=== PATIENT | male | born 1975 | race Caucasian/White ===

== ENCOUNTER 2020-06-18 12:00 | Emergency (ER) | payer SELFPAY ==
--- NOTE | 2020-06-18 12:49 | ER Document Report ---
ED General - General Chief Complaint: Abdominal Pain Stated Complaint: COUGH/FREQUENT URINGATION/VOMITING/DIARRHEA/CHILLS Time Seen by Provider: 06/18/20 12:30 Mode of Arrival: Ambulatory Information source: Patient - HPI Notes: This patient is a 44-year-old gentleman who presents with several month history of abdominal pain with intermittent loose stools and food intolerance with vomiting. He denies fever or chills. He had this about 2 years ago. He underwent an extensive work-up at a number of outlying facilities. Ultimately he saw a client administrator from [place] who diagnosed him with a "E. coli infection". He does not know what strain. He was treated and improved. However started around 2019 his symptoms have returned. He states he is now to the point where he can only eat a can of soup a day. Sometimes he vomits even after drinking water. He has 2-3 loose stools a day. He denies any hematemesis melena or hematochezia. He denies any weight loss and says that his weights been stable between 215 to 220 pounds for some time. He has no night sweats. He has no family history of inflammatory bowel disease. He is here today because he is very frustrated with his situation and the persistence of his symptoms. - Related Data Allergies/Adverse Reactions: No Known Allergies Allergy (Unverified 06/18/20 12:14) Past Medical History - General Information source: Patient - Social History Smoking Status: Unknown if Ever Smoked Frequency of alcohol use: None Drug Abuse: None Family History: Reviewed & Not Pertinent Patient has suicidal ideation: No Patient has homicidal ideation: No - Medical History Medical History: Other Notes: Past medical history as recorded in electronic health record is reviewed. Review of Systems - Review of Systems Notes: Full 12 point review of systems is negative or noncontributory except as noted in the present illness. Physical Exam - Vital signs Vitals: Temp 98.8 F 06/18/20 12:14 - Notes Notes: General: This is a well-developed well-nourished male no acute distress. Vital signs and nursing chief complaint are reviewed. HEENT: Grossly normal to inspection. Neck: Supple nontender no adenopathy. Chest: Normal configuration lungs clear to auscultation. Heart: Regular rate and rhythm without murmur rub or gallop. Abdomen: Mildly distended and a little firm. He has hypoactive but present bowel sounds. He has very mild diffuse direct tenderness. No guarding. No masses or organomegaly to speak of. Is that his abdomen feels bloated and he often has to position himself in a semirecumbent position to get some relief from that sensation. Extremities: Without clubbing cyanosis or edema. Skin: Warm moist good turgor no rashes. Back: Normal curvatures no CVA tenderness. Neuro: Alert and oriented x3. No focal motor or sensory deficits. Course - Re-evaluation Re-evalutation: 06/18/20 16:05 Patient rested comfortably throughout his stay. His labs were all normal or nondiagnostic. His CT scan was completely normal. I think it would be reasonable to go ahead and have him collect stool specimens for stool culture and for O&P. Depending on the results of those studies he either will be treated or he will require further follow-up with gastroenterology if his symptoms persist. - Vital Signs Vital signs: Temp Pulse Resp BP Pulse Ox 98.8 F 93 26 H 117/100 H 97 06/18/20 12:34 06/18/20 12:34 06/18/20 15:01 06/18/20 15:01 06/18/20 15:01 - Laboratory Results Result Diagrams: 06/18/20 13:48 06/18/20 13:48 Laboratory Results Interpreted: 06/18/20 06/18/20 13:48 13:48 RBC 5.95 H Hgb 17.3 H Sodium 135.0 L ALT 60 H Critical Laboratory Results Reviewed: No Critical Results - Radiology Results Critical Radiology Results Reviewed: No Critical Results Discharge - Discharge Clinical Impression: Chronic diarrhea Abdominal pain Qualifiers: Abdominal location: generalized Qualified Code(s): R10.84 - Generalized abd ominal pain Condition: Good Disposition: HOME, SELF-CARE Instructions: Abdominal Pain ([facility]), Antispasmodics ([facility]) Additional Instructions: Please collect stool specimens at home according to the instructions you have been given and return them to the laboratory for stool culture to test for bacte yoly and stool for ova and parasites to check for parasitic disease. When these tests are completed we will call you with the results. Please contact your client administrator office and see if you can make an appointment for a reevaluation. You may wish to wait to do this until after you have the results of the stool tests. Consider using a diet supplement drinks such as Ensure or PediaSure so that you are getting enough protein and calories in your diet every day in an easily digestible format. Return to the emergency department if any concerning symptoms develop.
[2020-06-18] MEDS ORDERED: MORPHINE SULFATE 10 MG/ML INJ IV ONE (14:07)
[2020-06-18] MEDS ORDERED: ONDANSETRON HCL INJ/PF 4 MG/2 ML SDV IV ONE (14:07)
[2020-06-18 14:17] LABS: ABSOLUTE BASOPHILS # (AUTO) 0.1 10^3/uL (0.0-0.2); ABSOLUTE EOSINOPHILS # (AUTO) 0.1 10^3/uL (0.0-0.6); ABSOLUTE LYMPHOCYTES (AUTO) 1.8 10^3/uL (0.5-4.7); ABSOLUTE MONOCYTES (AUTO) 0.6 10^3/uL (0.1-1.4); ABSOLUTE NEUT (AUTO) 6.1 10^3/uL (1.7-8.2); BASOPHILS % (AUTO) 1.2 % (0-2); HEMATOCRIT 50.8 % (37.9-51.0); HEMOGLOBIN 17.3 g/dL (13.5-17.0); LYMPHOCYTES % (AUTO) 20.4 % (13-45); MEAN CORPUSCULAR HEMOGLOBIN 29.1 pg (27.0-33.4); MEAN CORPUSCULAR HGB CONC 34.1 g/dL (32.0-36.0); MEAN CORPUSCULAR VOLUME 85 fl (80-97); PLATELET COUNT 290 10^3/uL (150-450); RED BLOOD COUNT 5.95 10^6/uL (4.35-5.55); RED CELL DISTRIBUTION WIDTH 12.7 % (11.5-14.0); SEGMENTED NEUTROPHILS % (AUTO) 70.4 % (42-78); TOTAL CELLS COUNTED % (AUTO) 100 %; WHITE BLOOD COUNT 8.6 10^3/uL (4.0-10.5)
[2020-06-18 14:50] LABS: ALKALINE PHOSPHATASE 64 U/L (38-126); ANION GAP 8 (5-19); ASPARTATE AMINO TRANSFERASE 54 U/L (17-59); BILIRUBIN,DIRECT 0.1 mg/dL (0.0-0.4); BILIRUBIN,TOTAL 0.9 mg/dL (0.2-1.3); BLOOD UREA NITROGEN 16 mg/dL (7-20); CALCIUM 10.1 mg/dL (8.4-10.2); CARBON DIOXIDE 28 mmol/L (22-30); CHLORIDE 99 mmol/L (98-107); GLUCOSE 103 mg/dL (75-110); POTASSIUM 4.5 mmol/L (3.6-5.0); TOTAL PROTEIN 8.2 g/dL (6.3-8.2)
[2020-06-18 14:56] LABS: C-REACTIVE PROTEIN < 5.0 mg/L (<10.0)
[2020-06-18 15:02] LABS: ERYTHROCYTE SEDIMENTATION RATE 12 mm/hr (0-15)
--- NOTE | 2020-06-18 15:39 | RADIOLOGY REPORT (SQ) ---
EXAM DESCRIPTION: CT ABD/PELVIS WITH IV ORAL IMAGES COMPLETED DATE/TIME: 06/18/2020 3:24 pm REASON FOR STUDY: Abd pain, diarrhea, anorexia COMPARISON: None. TECHNIQUE: CT scan of the abdomen and pelvis performed using helical scanning technique with dynamic intravenous contrast injection. No oral contrast. Images reviewed with lung, soft tissue, and bone windows. Reconstructed coronal and sagittal MPR images reviewed. Delayed images for evaluation of the urinary system also acquired. All images stored on PACS. All CT scanners at this facility use dose modulation, iterative reconstruction, and/or weight based d osing when appropriate to reduce radiation dose to as low as reasonably achievable (ALARA). [facility]: Dose Right [facility]: CareDose [facility]: Dose Right [facility]: Teradose 4D [facility]: DriverSide CONTRAST TYPE AND DOSE: contrast/concentration: Isovue 350.00 mmol/ml; Total Contrast Delivered: 99. 0 ml; Total Saline Delivered: 69.0 ml RENAL FUNCTION: GFR > 60. RADIATION DOSE: CT Rad equipment meets quality standard of care and radiation dose reduction techniq ues were employed. CTDIvol: 14.6 - 18.3 mGy. DLP: 1858 mGy-cm.. LIMITATIONS: None. FINDINGS: LOWER CHEST: No significant findings. No nodules or infiltrates. LIVER: Normal size. Fatty change. No masses. No dilated ducts. SPLEEN: Normal size. No focal lesions. PANCREAS: No masses. No significant calcifications. No adjacent inflammation or peripancreatic fluid collections. Pancreatic duct not dilated. GALLBLADDER: No identified stones by CT criteria. No inflammatory changes to suggest cholecystitis. ADRENAL GLANDS: No significant masses or asymmetry. RIGHT KIDNEY AND URETER: No solid masses. No significant calcifications. No hydronephrosis or hyd roureter. LEFT KIDNEY AND URETER: No solid masses. No significant calcifications. No hydronephrosis or hydr oureter. AORTA AND VESSELS: No aneurysm. No dissection. Renal arteries, SMA, celiac without stenosis. RETROPERITONEUM: No retroperitoneal adenopathy, hemorrhage or masses. BOWEL AND PERITONEAL CAVITY: No masses or inflammatory changes. No free fluid or peritoneal masses. APPENDIX: Normal. PELVIS: No mass. No free fluid. Normal bladder. ABDOMINAL WALL: No masses. No hernias. BONES: No significant or acute findings. OTHER: No other significant finding. IMPRESSION: No acute findings. TECHNICAL DOCUMENTATION: JOB ID: [id number] Quality ID # [id number]: Final reports with documentation of one or more dose reduction techniques (e.g., Au tomated exposure control, adjustment of the mA and/or kV according to patient size, use of iterative reconstruction technique) 2010 [employer]- All Rights Reserved Reading location - IP/workstation name: [email or web address]
[2020-06-18 15:55] LABS: APPEARANCE,URINE CLEAR; BILIRUBIN,URINE NEGATIVE (NEGATIVE); COLOR,URINE YELLOW; GLUCOSE, URINE NEGATIVE (NEGATIVE); KETONES,URINE NEGATIVE (NEGATIVE); LEUKOCYTE ESTERASE,URINE NEGATIVE (NEGATIVE); NITRITE,URINE NEGATIVE (NEGATIVE); PROTEIN,URINE NEGATIVE (NEGATIVE); UROBILINOGEN,URINE NEGATIVE mg/dL (<2.0)
[2020-06-18 16:53] VITALS: BP 132/94
== END 2020-06-18 17:27 | disposition home or self-care (01) ==
LOC: ER 12:00
DX: K52.9 Noninfective gastroenteritis and colitis, unspecified (principal); R10.84 Generalized abdominal pain; R10.817 Generalized abdominal tenderness; R11.10 Vomiting, unspecified
CPT/HCPCS: 99285; 96374; 96375; 36415; 83690; 85025; 85652; 86140; 80053; 81001; 74177; J2270; J2405